=== PATIENT | female | born 1975 | race Caucasian/White ===

== ENCOUNTER 2018-03-22 23:24 | Emergency (ER) | payer MEDICAID ==
[~2018-03-22] VITALS: Ht 172.7 cm; Wt 100.0 kg
[2018-03-22] MEDS ORDERED: ONDANSETRON HCL 4MG/2ML INJ IV STA (23:37)
[2018-03-22] MEDS ORDERED: SODIUM CHLORIDE 0.9% 1,000 ML IV ONE (23:37)
[2018-03-22] MEDS ORDERED: MECLIZINE 25MG TABLET PO ONE (23:45)
[2018-03-22] MEDS ORDERED: KETOROLAC 30MG/ML VIAL IV ONE (23:45)
[2018-03-23] MEDS ORDERED: METOCLOPRAMIDE HCL 10MG/2ML VIAL IV ONE (01:15)
[2018-03-23] MEDS ORDERED: SUMATRIPTAN SUCCINATE 6MG/0.5ML VIAL SUBCUT ONE (01:45)
[2018-03-23 03:36] VITALS: BP 126/78
== END 2018-03-23 03:39 | disposition home or self-care (01) ==
LOC: ER 23:24
DX: R51 Headache (principal); R03.0 Elevated blood-pressure reading, without diagnosis of hypertension
CPT/HCPCS: 96361; 96372; 96374; 96375; 99285; J1885; J2405; J2765; J3030; J7030; Z7610; J8597